=== PATIENT | female | born 1990 | race Caucasian/White ===

== ENCOUNTER 2019-02-02 16:55 | Emergency (ER) | payer SELFPAY ==
--- NOTE | 2019-02-02 18:45 | RAD ---
Right hip 2 views HISTORY: Right hip pain. FINDINGS: Joint space is preserved. Femoral head contour is maintained. No acute fracture, dislocatio n, or aggressive osseous erosions. IMPRESSION: No acute osseous abnormalities are demonstrated.
--- NOTE | 2019-02-02 18:57 | CT ---
CT head noncontrast HISTORY: Headache. FINDINGS: There is no evidence of acute intracranial hemorrhage or infarct. The ventricles appear nor mal in size, shape and position. There is no mass effect or shift of midline structures. Visualized paranasal sinuses remain well aerated. IMPRESSION: No acute intracranial abnormalities are demonstrated.
[2019-02-02 18:58] LABS: Bilirubin Negative (Negative); Blood, Urine Negative (Negative); Clarity Clear (Clear); Glucose, Urine (Dipstick) Normal (Negative); Leukocyte 75 Leu/uL (Negative); Nitrite Negative (Negative); Protein, Urine (Dipstick) Negative (Neg-Trace); RBC/HPF 0-3 HPF (0-3); Squamous Epithelial None Seen HPF (0-3); Urobilinogen Normal mg/dL (Less than 2); WBC/HPF 0-3 HPF (0-3)
[2019-02-02 19:01] LABS: Bacteria/HPF 1+ HPF (None Seen)
[2019-02-02 19:31] LABS: #Eosinphils 0.4 thou/uL (0.0-0.7); #Lymphocytes 4.1 thou/uL (1.20-3.40); #Monocytes 0.6 thou/uL (0.11-0.59); #Neutrophils 5.9 thou/uL (1.40-6.50); %Basophils 0.4 % (0.0-1.0); %Eosinophils 3.3 % (0.0-10.0); %Monocytes 5.6 % (0.0-10.0); %Neutrophils 53.7 % (42.0-75.0); Hemoglobin 15.1 g/dL (12.0-16.0); Mean Corpuscular HGB CONC 33.7 g/dL (32.0-36.0); Mean Corpuscular Hemoglobin 28.5 pg (27.0-31.0); Mean Corpuscular Volume 84.7 fL (78.0-98.0); Mean Platelet Volume 7.9 fL (7.4-10.4); Platelet Count 298 thou/uL (130-400); RBC Distribution Width 12.1 % (11.5-14.5); Red Blood Cell (RBC) Count 5.31 mill/uL (4.20-5.40); White Blood Cell (WBC) Count 11.1 thou/uL (4.8-10.8)
[2019-02-02] MEDS ORDERED: diphenhydrAMINE 50 MG/ML VIAL ONE (19:35)
[2019-02-02] MEDS ORDERED: Metoclopramide HCl 10 MG/2 ML VIAL ONE (19:35)
[2019-02-02 19:37] LABS: BHCG - Serum Negative (NEGATIVE); Pregs Control Background? CLEAR/WHITE (CLR/WHITE); Pregs Control Bar Appear? YES (CONTROL BAR)
[2019-02-02 19:51] LABS: ALT (SGPT) 26 U/L (8-55); AST (SGOT) 24 U/L (5-34); Albumin 4.3 g/dL (3.5-5.0); Alkaline Phosphatase 73 U/L (40-150); Anion Gap 14 mmol/L (10-20); BUN (Urea Nitrogen) 10 mg/dL (7.0-18.7); Bilirubin, Total 0.2 mg/dL (0.2-1.2); Calc. Creatinine Clearance 0 mL/min (70-130); Calcium 9.8 mg/dL (7.8-10.44); Carbon Dioxide 23 mmol/L (22-29); Chloride 104 mmol/L (98-107); Estimated GFR-MDRD 84; Globulin 3.5 g/dL (2.4-3.5); Glucose 85 mg/dL (70-105); Potassium 4.2 mmol/L (3.5-5.1); Protein, Total 7.8 g/dL (6.0-8.3); Sodium 137 mmol/L (136-145)
== END 2019-02-02 21:43 | disposition home or self-care (01) ==
LOC: ERS 16:55
DX: R51 Headache (principal); M54.5 Low back pain; M25.551 Pain in right hip; J45.909 Unspecified asthma, uncomplicated; F41.9 Anxiety disorder, unspecified; F32.9 Major depressive disorder, single episode, unspecified; Z79.899 Other long term (current) drug therapy; W06.XXXA Fall from bed, initial encounter
CPT/HCPCS: 70450; 80053; 81003; 81015; 84703; 85025; 96365; 96366; 96375; J1200; J2765